=== PATIENT | female | born 1990 | race Caucasian/White ===

== ENCOUNTER 2020-12-09 10:52 | Outpatient (REF) | payer BC, SELFPAY ==
--- NOTE | 2020-12-09 11:02 | XR_ITS ---
EXAMINATION: XR CHEST CLINICAL INFORMATION: Cough COMPARISON: None TECHNIQUE: 2 views of the chest were obtained. FINDINGS: No significant abnormality is noted involving the heart, lungs, mediastinum, bony thorax or soft tissues. XR/XR chest 2V IMPRESSION: Unremarkable examination.
== END 2020-12-09 10:53 | disposition home or self-care (01) ==
LOC: HO.LAB 10:52
PROVIDERS: PCP Internal Medicine; Referring Provider Internal Medicine; Visit Provider Internal Medicine
DX: R05 Cough (principal)
CPT/HCPCS: 71046

== ENCOUNTER 2021-01-09 15:18 | Outpatient (REF) | payer BC, SELFPAY ==
[2021-01-09 18:51] LABS: TSH reflex Free T4 2.32 uIU/mL (0.32-4.0)
[2021-01-10 13:58] LABS: BV Int Neg Control Negative (Negative); BV Int Pos Control Positive (Positive)
[2021-01-10 18:07] LABS: C. trachomatis RNA TMA NOT DETECTED (NOT DETECTED); N. gonorrhoeae RNA TMA NOT DETECTED (NOT DETECTED)
[2021-01-11 15:36] LABS: Prolactin 9.7 ng/mL
[2021-01-17 13:47] LABS: Testosterone, Free 1.3 pg/mL (0.1-6.4); Testosterone, Total 18 ng/dL (2-45)
== END 2021-01-09 15:19 | disposition home or self-care (01) ==
LOC: HO.LAB 15:18
PROVIDERS: PCP Family Medicine; Visit Provider Advanced Practice Midwife
DX: N91.1 Secondary amenorrhea (principal); R10.2 Pelvic and perineal pain; L68.0 Hirsutism
CPT/HCPCS: 36415; 81003; 81025; 83498; 84146; 84402; 84403; 84443; 87480; 87491; 87510; 87591; 87660

== ENCOUNTER 2021-01-16 09:17 | Outpatient (REF) | payer BC, SELFPAY ==
--- NOTE | ~2021-01-16 | MM_ITS ---
EXAMINATION: MM DIAGNOSTIC DIGITAL BREAST TOMOSYNTHESIS, BILATERAL US DIAGNOSTIC ULTRASOUND BREAST, LEFT CLINICAL INFORMATION: 30-year-old with palpable left breast concern initially noted by patient outer quadrant. Clinical exam notes 1 cm nodularity 7 cm from nipple 3:00. Family history breast cancer maternal grandmother and aunt and also paternal grandmother and aunt. Other cancer history and family. The lifetime risk of breast cancer based on the Tyrer-Cuzick Model is 31%. COMPARISON: Ultrasound right breast 03/07/2014. TECHNIQUE: Digital breast tomosynthesis is performed in both the craniocaudal and mediolateral oblique views along with computer-aided detection (CAD). Synthesized 2D images are generated from the tomosynthesis. Ultrasound left breast is targeted to the areas of clinical concern 1:00 through 5:00 position. Grayscale imaging and color Doppler are performed without and with harmonics. FINDINGS: The breasts are heterogeneously dense, which may obscure small masses (ACR BI-RADS breast composition Category c). There is benign regional parenchymal asymmetry upper outer left breast compared with the right. There is no underlying mass or architectural abnormality or abnormal calcifications. Some grouped dermal calcifications are present posterior inferior medial left breast. The bilateral axilla and skin contours are unremarkable. Ultrasound left breast demonstrates no cystic or solid mass or architectural abnormality. No focal duct ectasia. No skin thickening or edema tracking in soft tissue plane. Results are discussed with the patient at time of visit. Given the family history, genetic counseling consultation may be considered. MM/MM tomosynthesis diagnostic BI IMPRESSION: 1. No mammographic evidence of malignancy. 2. Unremarkable left breast ultrasound. ASSESSMENT: BI-RADS 2: Benign RECOMMENDATION: 1. Patient should be managed based on the clinical impression. If clinically indicated, further evaluation may be considered with surgical consult. Decision to proceed with biopsy should be based on clinical grounds and degree of clinical concern. 2. The lifetime risk of breast cancer based on the Tyrer-Cuzick Model is 31%. Genetic testing consultation may be considered and perhaps earlier annual screening mammography as warranted, beginning age 30 or 35 as warranted. This patient's information was entered into a reminder system with a target due date for their next mammogram.
== END 2021-01-16 09:18 | disposition home or self-care (01) ==
LOC: HO.MAMMO 09:17
PROVIDERS: Visit Provider Advanced Practice Midwife
DX: N63.25 Unspecified lump in the left breast, overlapping quadrants (principal); Z80.3 Family history of malignant neoplasm of breast
CPT/HCPCS: 76642; 77062; 77066

== ENCOUNTER 2021-01-19 15:49 | Outpatient (REF) | payer BC, SELFPAY ==
--- NOTE | ~2021-01-19 | US_ITS ---
EXAMINATION: US PELVIS COMPLETE CLINICAL INFORMATION: Right-sided pelvic pain. COMPARISON: None. TECHNIQUE: Transabdominal and transvaginal ultrasound the pelvis is performed. FINDINGS: The uterus is anteverted measuring 8.3 cm in length, 3.6 cm in AP and 4.2 cm in transverse dimension. Endometrial thickness is 1.3 cm. The cervix is unremarkable. The right ovary measures 5.1 x 4.6 x 3.7 cm and volume 45.5 mL. There is a complex area seen in the right ovary, cystic and solid measuring 4.3 x 3.0 x 3.9 cm and nonvascular. Left ovary measures measures 2.6 x 2.1 x 2.4 cm and volume 9.50 mL There is no free fluid in the cul-de-sac. US/US transvaginal IMPRESSION: Predominantly solid lesion right ovary. Likely primary ovarian lesion. Differential diagnosis includes granuloma cell tumor or other epithelial lesions. Correlate clinically. The left ovary and the uterus are unremarkable.
--- NOTE | ~2021-01-19 | US_ITS ---
EXAMINATION: US PELVIS COMPLETE CLINICAL INFORMATION: Right-sided pelvic pain. COMPARISON: None. TECHNIQUE: Transabdominal and transvaginal ultrasound the pelvis is performed. FINDINGS: The uterus is anteverted measuring 8.3 cm in length, 3.6 cm in AP and 4.2 cm in transverse dimension. Endometrial thickness is 1.3 cm. The cervix is unremarkable. The right ovary measures 5.1 x 4.6 x 3.7 cm and volume 45.5 mL. There is a complex area seen in the right ovary, cystic and solid measuring 4.3 x 3.0 x 3.9 cm and nonvascular. Left ovary measures measures 2.6 x 2.1 x 2.4 cm and volume 9.50 mL There is no free fluid in the cul-de-sac. US/US pelvic complete IMPRESSION: Predominantly solid lesion right ovary. Likely primary ovarian lesion. Differential diagnosis includes granuloma cell tumor or other epithelial lesions. Correlate clinically. The left ovary and the uterus are unremarkable.
== END 2021-01-19 15:50 | disposition home or self-care (01) ==
LOC: HO.US 15:49
PROVIDERS: PCP Internal Medicine; Visit Provider Advanced Practice Midwife
DX: R10.2 Pelvic and perineal pain (principal); L68.0 Hirsutism; N91.1 Secondary amenorrhea
CPT/HCPCS: 76830; 76856

== ENCOUNTER → 2021-01-20 11:34 | Outpatient (BNVA) | payer BC, SELFPAY | PROVIDERS: PCP Internal Medicine; Visit Provider Advanced Practice Midwife ==

== ENCOUNTER 2021-01-21 10:08 | Outpatient (REF) | payer BC, SELFPAY ==
[2021-01-22 10:27] LABS: CA-125 48 U/mL (<35); DHEA Sulfate 212 mcg/dL (18-391)
== END 2021-01-21 10:09 | disposition home or self-care (01) ==
LOC: HO.LAB 10:08
PROVIDERS: PCP Internal Medicine; Visit Provider Advanced Practice Midwife
DX: R10.2 Pelvic and perineal pain (principal); B37.9 Candidiasis, unspecified; N63.25 Unspecified lump in the left breast, overlapping quadrants; L68.0 Hirsutism; R19.00 Intra-abdominal and pelvic swelling, mass and lump, unspecified site; Z80.3 Family history of malignant neoplasm of breast; Z71.2 Person consulting for explanation of examination or test findings
CPT/HCPCS: 36415; 82627; 86304

== ENCOUNTER → 2021-02-25 10:43 | Outpatient (BNVA) | payer BC, SELFPAY | PROVIDERS: PCP Internal Medicine; Visit Provider Advanced Practice Midwife ==

== ENCOUNTER → 2021-03-25 11:17 | Outpatient (BNVA) | payer BC, SELFPAY | PROVIDERS: PCP Internal Medicine; Visit Provider Advanced Practice Midwife ==

== ENCOUNTER 2021-03-26 10:22 | Outpatient (REF) | payer BC, SELFPAY ==
[2021-03-26 10:57] LABS: Hematocrit 40.2 % (37-47); Hemoglobin 13.3 g/dl (12.0-16.0); Mean Corpuscular HGB Conc 33.1 g/dl (31.0-35.0); Mean Corpuscular Hemoglobin 29.5 pg (27.0-33.0); Mean Corpuscular Volume 89.1 fL (80-98); Mean Platelet Volume 11.4 fL (9.4-12.3); Platelet Count 199 X10*3/uL (160-400); Red Blood Count 4.51 X10*6/uL (4.20-5.50); Red Cell Distribution Width 12.9 % (11.0-16.0); White Blood Count 5.7 X10*3/uL (4.8-10.8)
== END 2021-03-26 10:23 | disposition home or self-care (01) ==
LOC: HO.LAB 10:22
PROVIDERS: PCP Family Medicine; Visit Provider Advanced Practice Midwife
DX: N92.1 Excessive and frequent menstruation with irregular cycle (principal)
CPT/HCPCS: 36415; 85027

== ENCOUNTER → 2021-05-04 11:25 | Outpatient (BNVA) | payer BC, SELFPAY | PROVIDERS: Visit Provider Advanced Practice Midwife ==